=== PATIENT | male | born 1950 | race Caucasian/White ===

== ENCOUNTER 2025-03-18 15:16 | Emergency (ER) | payer OTHER, SELFPAY ==
[2025-03-18 15:35] VITALS: BP 151/70
--- NOTE | 2025-03-18 16:52 | ED.GENMED ---
History of Present Illness
General
Chief Complaint: Musculo-Skeletal Complaint
Source: patient
Exam Limitations: none
Time Seen by Provider: 03/18/25 16:38
Nursing documentation reviewed up to this point in time: agreed with
History of Present Illness
History of Present Illness:
Patient is a 75 old male who reports he was walking his dog and tripped and fell and put his arm out to brace his fall. He complains of right shoulder pain. He denies hitting his head denies neck pain. His only complaint is right shoulder pain.
He has not taken anything for his pain.
Past History
Past History
ED Past Medical History: None
ED Past Surgical History: None
Social History
Tobacco: Non-smoker
Alcohol: None
Drug: None
Personal:
Living: with family
Employment: Employed
Phy Exam
General Physical Exam
General Presentation: no apparent distress
General age: appears stated age
General Skin: warm and dry
General Habitus: normal
General Mental: alert
General Hydration: appears well hydrated
Neurological Exam
Neurological Exam: alert and oriented x3
Musculoskeletal Exam
Musculoskeletal Exam: other (No swelling to right shoulder nontender mild discomfort with full abduction and limited range of motion due to discomfort strong distal pulses normal distal sensation and cap refill; no obvious head injury no bony
cervical spine tenderness)
Skin Exam
Skin Exam: normal color and warm/dry
Psychiatric Exam
Psychiatric Exam: normal mood/affect
Course
Orders/Labs/Results
Orders:
Orders
03/18/25 15:37
Shoulder, Right, Trauma [CR Shoulder, Trauma - Right] Urgent
Comment:
Reason For Exam: pain after a fall
Vital Signs
Initial and Last Documented VS:
Initial Vital Signs
Temp Pulse Resp BP Pulse Ox
97.8 F 70 18 151/70 96
03/18/25 15:35 03/18/25 15:35 03/18/25 15:35 03/18/25 15:35 03/18/25 15:35
Last Documented Vital Signs
Temp Pulse Resp BP Pulse Ox
97.8 F 70 18 151/70 96
03/18/25 15:35 03/18/25 15:35 03/18/25 15:35 03/18/25 15:35 03/18/25 15:35
MDM/Problems Addressed
Differential Diagnosis Includes:
Not limited to fracture dislocation sprain strain rotator cuff injury
MDM/Problems Addressed:
Symptoms are consistent with sprain strain possible minor rotator cuff injury. Patient is very well-appearing denies hitting his head. He does have good range of motion though limited because of discomfort. He does not want a sling. Will DC with
ice ibuprofen and Ortho follow-up
*Radiology
Radiology exam reviewed: radiology read reviewed
*Pulse Oximetry
SaO2: 96
Oxygen Mode of Delivery: Room air
Patient hypoxic: no
*Critical Care Note
Total Time (30-74mins, 75-104mins- exclusive of procedures): Not Applicable
ED Attending Note
-
Portions of this chart may have been created with voice recognition software.� Occasional wrong word or��sound alike� substitutions may have occurred due to the inherent limitations of voice recognition software.
Discharge Plan
Departure
Patient Disposition: Home (Routine Discharge)
Date of Disposition: 03/18/25
Time of Disposition: 16:54
Patient with high blood pressure during this ER visit?: Yes
Condition: Fair
Covid-19: Not Applicable
Discharge Problem:
Shoulder sprain
Instructions: Shoulder Sprain ED
Prescriptions:
No Action
Acetylcysteine
1 tab PO DAILY
zinc [Zinc Chelate] 100 MG tablet
100 mg PO DAILY
ascorbic acid (vitamin C) [Vitamin C] 500 MG tablet
500 mg PO DAILY
vitamin B complex 1 TAB tablet
1 tab PO DAILY
vitamin E (dl, acetate) 100 UNITS capsule
100 units PO DAILY
cholecalciferol (vitamin D3) 1,000 UNITS tablet
1,000 units PO DAILY
omega-3 fatty acids-fish oil 1 EACH capsule
1 ea PO DAILY
saw-vit E-sod chn-clv-mnce-pyg [Prostate Health] 1 EACH tablet
1 ea PO DAILY
Co Q-10
1 tab PO DAILY
Saw Justice
1 tab PO DAILY
Turmeric
1 tab PO DAILY
amoxicillin-pot clavulanate 1 TABLET tablet
1 tab PO Q12 10 Days Qty: 19 0RF
Referrals:
Mike Nieto MD [Active, Orthopedics]
Activity Restrictions/Additional Instructions:
As discussed ice the affected area for the next 24 to 48 hours 20 minutes at a time several times a day. Ibuprofen 400 mg every 8 hours with food. You may alternate with Tylenol do gentle range of motion exercises. Follow-up closely with
orthopedics. Call to make an appointment. Return if any worsening of symptoms
Interventions
Interventions:
*Risk Screen - Suicide Last Done: 03/18/25 15:35
*General Assessment Last Done: 03/18/25 16:13
*Neglect/Abuse Screening Last Done: 03/18/25 15:35
*ED- Fall Risk Assessment Last Done: 03/18/25 16:13
ED-Musculoskeletal Assessment Last Done: 03/18/25 16:13
Discharge Date and Time
Print Language: CANADIAN
--- NOTE | 2025-03-18 17:01 | EDRN ---
Pt approached this RN in other pts room to ask how long it will take for him to get his MRI. Pt and his informed by [employer] and this RN that MRI is not ordered today and pt is to schedule MRI as outpatient.
== END 2025-03-18 17:02 | disposition home or self-care (01) ==
LOC: EMR 15:16
PROVIDERS: EMERGENCY PHYSICIAN Emergency Medicine
DX: S43.401A Unspecified sprain of right shoulder joint, initial encounter (principal); W01.0XXA Fall on same level from slipping, tripping and stumbling without subsequent striking against object, initial encounter; Y93.K1 Activity, walking an animal
CPT/HCPCS: 99283; 73030